=== PATIENT | male | born 1975 | race African-American/Black ===

== ENCOUNTER 2022-08-04 13:21 | Inpatient (IN) | payer OTHER ==
[2022-08-04 15:09] VITALS: BMI 22.8
[2022-08-04] MEDS ORDERED: ACETAMINOPHEN 325 MG TABLET (FP) PO PRN (17:40)
[2022-08-04] MEDS ORDERED: IBUPROFEN 400 MG TABLET (FP) PO PRN (17:40)
[2022-08-04] MEDS ORDERED: IBUPROFEN 600 MG TABLET (FP) PO PRN (17:40)
[2022-08-04] MEDS ORDERED: P-EPHED 60MG/TRIPROLIDI 2.5MG TABLET PO PRN (17:40)
[2022-08-04] MEDS ORDERED: AMMONIUM LACTATE 12% LOTION 225 GM BOTTLE TP PRN (17:40)
[2022-08-04] MEDS ORDERED: LOPERAMIDE HCL 2 MG CAPSULE PO PRN (17:40)
[2022-08-04] MEDS ORDERED: hydrOXYzine PAMOATE 25 MG CAPSULE (FP) PO PRN (17:40)
[2022-08-04] MEDS ORDERED: MAG HYDROX/AL HYDROX/SIMETH 30 ML UNIT-DOSE CUP PO PRN (17:40)
[2022-08-04] MEDS ORDERED: guaiFENesin 600 MG TABLET.ER (FP) PO PRN (17:40)
[2022-08-04] MEDS ORDERED: MAGNESIUM HYDROX 2400MG/30ML ORAL SUSPENSION 30 ML CUP PO PRN (17:40)
[2022-08-04] MEDS ORDERED: COLLOIDAL OATMEAL 1 BAR EACH TP PRN (17:40)
[2022-08-04] MEDS ORDERED: BENZOCAINE/MENTHOL (CHLORASEPTIC ) LOZENGE MM PRN (17:40)
[2022-08-04] MEDS ORDERED: POLYETHYLENE GLYCOL (HEALTHYLAX) 3350 17 GM PACKET PO PRN (17:40)
[2022-08-04] MEDS ORDERED: BENZONATATE 200 MG CAPSULE PO PRN (17:40)
[2022-08-04] MEDS: TUBERCULIN PPD 5 TU/0.1ML SYRINGE (IN PATIENT USE ONLY) ID ONE ×2 (18:38→19:20)
[2022-08-04 20:49] VITALS: RESP 18
[2022-08-04] MEDS: LIDOCAINE PATCH REMOVAL MC SCH (22:10)
[2022-08-04] MEDS: THIAMINE HCL 100 MG TABLET (FP) PO SCH (22:10)
[2022-08-04] MEDS: MELATONIN 5 MG TABLETS PO SCH (22:10)
[2022-08-05] MEDS: PRENATAL VITAMINS W/ FOLIC ACID TABLET (FP) PO SCH (09:53)
[2022-08-05] MEDS: LIDOCAINE 5% TOPICAL PATCH TP SCH (09:53)
[2022-08-05 12:44] LABS: HEMATOCRIT 42.4 % (35.4-49); HEMOGLOBIN 14.3 GM/dL (11.7-16.9); MCH 31.4 pg (25.7-33.7); MCHC 33.7 g/dl (32.0-35.9); MEAN CELL VOLUME 93.2 fl (80-96); MEAN PLT VOLUME 7.6 fl (7.5-11.1); PLATELET COUNT 297 10^3/uL (134-434); POTASSIUM 3.5 mmol/L (3.5-5.1); RBC 4.55 M/mm3 (4.00-5.60); RDW 13.6 % (11.9-15.9); WHITE BLOOD COUNT 3.2 K/mm3 (4.0-10.0)
[2022-08-05 12:55] LABS: ALBUMIN 2.9 g/dl (3.4-5.0); BLOOD UREA NITROGEN 12.2 mg/dL (7-18); CALCIUM 8.9 mg/dL (8.5-10.1)
[2022-08-05 12:57] LABS: CREATININE 0.9 mg/dL (0.55-1.3)
[2022-08-05 12:59] LABS: BILIRUBIN,TOTAL 0.6 mg/dL (0.2-1)
[2022-08-05 13:07] LABS: SYPHILIS W/ RPR CONF NON-REACTIVE (NONREACTIVE)
[2022-08-05 13:11] LABS: PH,URINE 6.5 (5.0-8.0); URINE APPEARANCE CLEAR; URINE BILIRUBIN NEGATIVE (NEGATIVE); URINE COLOR YELLOW; URINE GLUCOSE (UA) NEGATIVE (NEGATIVE); URINE KETONE NEGATIVE (NEGATIVE); URINE LEUK ESTERASE NEGATIVE (NEGATIVE); URINE NITRITE NEGATIVE (NEGATIVE); URINE PROTEIN NEGATIVE (NEGATIVE); URINE UROBILINOGEN 0.2 mg/dL (0.2-1.0)
[2022-08-05] MEDS ORDERED: ARIPiprazole 10 MG TABLET PO STA (16:05)
[2022-08-05] MEDS ORDERED: CITALOPRAM HYDROBROMIDE 20 MG TABLET PO STA (16:06)
[2022-08-05] MEDS: MELATONIN 5 MG TABLETS PO SCH (23:37)
[2022-08-05] MEDS: LIDOCAINE PATCH REMOVAL MC SCH (23:37)
[2022-08-05] MEDS: THIAMINE HCL 100 MG TABLET (FP) PO SCH (23:37)
[2022-08-06 07:10] VITALS: BP 157/101; PULSE 69; TEMP 96.2
[2022-08-06] MEDS: PRENATAL VITAMINS W/ FOLIC ACID TABLET (FP) PO SCH (10:19)
[2022-08-06] MEDS: LIDOCAINE 5% TOPICAL PATCH TP SCH (10:19)
[2022-08-06] MEDS ORDERED: ARIPiprazole 10 MG TABLET PO SCH (14:00)
[2022-08-06] MEDS ORDERED: CITALOPRAM HYDROBROMIDE 20 MG TABLET PO SCH (14:00)
== END 2022-08-06 14:00 | disposition left against medical advice (07) | DRG 770 ==
LOC: YASAS 13:21 → Y3W 17:44
PROVIDERS: ADMIT Surgery; ATTEND Psychiatry & Neurology Pain Medicine
PROC: HZ42ZZZ Group Counseling for Substance Abuse Treatment, Cognitive-Behavioral (ICD-10-PCS; principal; 2022-08-04)
DX: F15.20 Other stimulant dependence, uncomplicated (principal); F32.A Depression, unspecified; F43.10 Post-traumatic stress disorder, unspecified; B20 Human immunodeficiency virus [HIV] disease; Z79.899 Other long term (current) drug therapy; M54.50 Low back pain, unspecified; G89.29 Other chronic pain; Z86.59 Personal history of other mental and behavioral disorders
CPT/HCPCS: 36415; 80053; 81003; 85027; 86780; 86803; 87635; 87811; 93005; 93010

== ENCOUNTER 2022-11-01 14:08 | Inpatient (IN) | payer OTHER ==
[2022-11-01 15:37] VITALS: BMI 23.2
[2022-11-01] MEDS ORDERED: LOPERAMIDE HCL 2 MG CAPSULE PO PRN (21:35)
[2022-11-01] MEDS ORDERED: BENZONATATE 200 MG CAPSULE PO PRN (21:35)
[2022-11-01] MEDS ORDERED: IBUPROFEN 400 MG TABLET (FP) PO PRN (21:35)
[2022-11-01] MEDS ORDERED: COLLOIDAL OATMEAL 1 BAR EACH TP PRN (21:35)
[2022-11-01] MEDS ORDERED: guaiFENesin 600 MG TABLET.ER (FP) PO PRN (21:35)
[2022-11-01] MEDS ORDERED: IBUPROFEN 600 MG TABLET (FP) PO PRN (21:35)
[2022-11-01] MEDS ORDERED: MAG HYDROX/AL HYDROX/SIMETH 30 ML UNIT-DOSE CUP PO PRN (21:35)
[2022-11-01] MEDS ORDERED: P-EPHED 60MG/TRIPROLIDI 2.5MG TABLET PO PRN (21:35)
[2022-11-01] MEDS ORDERED: MAGNESIUM HYDROX 2400MG/30ML ORAL SUSPENSION 30 ML CUP PO PRN (21:35)
[2022-11-01] MEDS ORDERED: BENZOCAINE/MENTHOL (CHLORASEPTIC ) LOZENGE MM PRN (21:35)
[2022-11-01] MEDS ORDERED: POLYETHYLENE GLYCOL (HEALTHYLAX) 3350 17 GM PACKET PO PRN (21:35)
[2022-11-01] MEDS ORDERED: ACETAMINOPHEN 325 MG TABLET (FP) PO PRN (21:35)
[2022-11-02] MEDS: MELATONIN 5 MG TABLETS PO SCH ×2 (02:04→21:08)
[2022-11-02] MEDS: THIAMINE HCL 100 MG TABLET (FP) PO SCH ×2 (02:04→21:08)
[2022-11-02] MEDS: hydrOXYzine PAMOATE 25 MG CAPSULE (FP) PO PRN (06:25)
[2022-11-02] MEDS: BICTEGRAV/EMTRICIT/TENOFOV (BIKTARVY) 50-200-25 MG TABLET PO SCH (07:06)
[2022-11-02] MEDS ORDERED: BACITRACIN ZINC 15 GM TUBE TOPICAL OINTMENT TP SCH (10:00)
[2022-11-02] MEDS: SULFAMETHOXAZOLE/TRIMETHOPRIM 800MG/160MG D.S. TABLET PO SCH ×2 (10:12→21:08)
[2022-11-02] MEDS: FOLIC ACID 1 MG TABLET (FP) PO SCH (10:13)
[2022-11-02] MEDS: PRENATAL VITAMINS W/ FOLIC ACID TABLET (FP) PO SCH (10:13)
[2022-11-02 11:13] LABS: CALCIUM 8.3 mg/dL (8.5-10.1)
[2022-11-02 11:14] LABS: ALBUMIN 2.6 g/dl (3.4-5.0); BLOOD UREA NITROGEN 7.3 mg/dL (7-18)
[2022-11-02 11:17] LABS: CREATININE 1.2 mg/dL (0.55-1.3)
[2022-11-02 11:18] LABS: TOT PROT 8.6 g/dl (6.4-8.2)
[2022-11-02 11:19] LABS: BILIRUBIN,TOTAL 0.3 mg/dL (0.2-1)
[2022-11-02 11:24] LABS: HEMATOCRIT 38.9 % (35.4-49); HEMOGLOBIN 12.8 GM/dL (11.7-16.9); MCH 30.5 pg (25.7-33.7); MEAN CELL VOLUME 92.6 fl (80-96); MEAN PLT VOLUME 7.9 fl (7.5-11.1); PLATELET COUNT 278 10^3/uL (134-434); RDW 13.6 % (11.9-15.9); WHITE BLOOD COUNT 3.5 K/mm3 (4.0-10.0)
[2022-11-02] MEDS: ASCORBIC ACID 500 MG TABLET (FP) PO SCH (12:06)
[2022-11-02] MEDS: ARIPiprazole 10 MG TABLET PO SCH (13:17)
[2022-11-02] MEDS: TAMSULOSIN HCL 0.4 MG CAP PO SCH (13:17)
[2022-11-02] MEDS: CITALOPRAM HYDROBROMIDE 20 MG TABLET PO SCH (13:31)
[2022-11-02 17:32] LABS: PH,URINE 6.5 (5.0-8.0); URINE APPEARANCE CLEAR; URINE BILIRUBIN NEGATIVE (NEGATIVE); URINE COLOR YELLOW; URINE GLUCOSE (UA) NEGATIVE (NEGATIVE); URINE KETONE NEGATIVE (NEGATIVE); URINE LEUK ESTERASE NEGATIVE (NEGATIVE); URINE NITRITE NEGATIVE (NEGATIVE); URINE PROTEIN NEGATIVE (NEGATIVE)
[2022-11-02] MEDS: BACITRACIN 0.9 GM PACKET TP SCH (21:08)
[2022-11-03] MEDS: BICTEGRAV/EMTRICIT/TENOFOV (BIKTARVY) 50-200-25 MG TABLET PO SCH (07:05)
[2022-11-03] MEDS: FOLIC ACID 1 MG TABLET (FP) PO SCH (09:37)
[2022-11-03] MEDS: BACITRACIN 0.9 GM PACKET TP SCH ×2 (09:37→21:04)
[2022-11-03] MEDS: SULFAMETHOXAZOLE/TRIMETHOPRIM 800MG/160MG D.S. TABLET PO SCH ×2 (09:37→21:04)
[2022-11-03] MEDS: PRENATAL VITAMINS W/ FOLIC ACID TABLET (FP) PO SCH (09:37)
[2022-11-03] MEDS: ASCORBIC ACID 500 MG TABLET (FP) PO SCH (09:37)
[2022-11-03] MEDS: TAMSULOSIN HCL 0.4 MG CAP PO SCH (09:37)
[2022-11-03] MEDS: ARIPiprazole 10 MG TABLET PO SCH (14:15)
[2022-11-03] MEDS: CITALOPRAM HYDROBROMIDE 20 MG TABLET PO SCH (14:15)
[2022-11-03] MEDS: MELATONIN 5 MG TABLETS PO SCH (21:04)
[2022-11-03] MEDS: THIAMINE HCL 100 MG TABLET (FP) PO SCH (21:04)
[2022-11-04] MEDS: BICTEGRAV/EMTRICIT/TENOFOV (BIKTARVY) 50-200-25 MG TABLET PO SCH (07:09)
[2022-11-04] MEDS: TAMSULOSIN HCL 0.4 MG CAP PO SCH (08:54)
[2022-11-04] MEDS: PRENATAL VITAMINS W/ FOLIC ACID TABLET (FP) PO SCH (09:23)
[2022-11-04] MEDS: BACITRACIN 0.9 GM PACKET TP SCH ×2 (09:23→21:27)
[2022-11-04] MEDS: ASCORBIC ACID 500 MG TABLET (FP) PO SCH (09:23)
[2022-11-04] MEDS: SULFAMETHOXAZOLE/TRIMETHOPRIM 800MG/160MG D.S. TABLET PO SCH ×2 (09:23→21:27)
[2022-11-04] MEDS: FOLIC ACID 1 MG TABLET (FP) PO SCH (09:23)
[2022-11-04] MEDS ORDERED: PENICILLIN G BENZATHINE 2,400,000 UNIT/4 ML PFS IM ONE (12:53)
[2022-11-04] MEDS: CITALOPRAM HYDROBROMIDE 20 MG TABLET PO SCH (13:37)
[2022-11-04] MEDS: ARIPiprazole 10 MG TABLET PO SCH (13:37)
[2022-11-04] MEDS: MELATONIN 5 MG TABLETS PO SCH (21:26)
[2022-11-04] MEDS: THIAMINE HCL 100 MG TABLET (FP) PO SCH (21:26)
[2022-11-05] MEDS: BICTEGRAV/EMTRICIT/TENOFOV (BIKTARVY) 50-200-25 MG TABLET PO SCH (07:17)
[2022-11-05 07:45] VITALS: RESP 18
[2022-11-05] MEDS: BACITRACIN 0.9 GM PACKET TP SCH ×2 (09:29→21:06)
[2022-11-05] MEDS: PRENATAL VITAMINS W/ FOLIC ACID TABLET (FP) PO SCH (09:29)
[2022-11-05] MEDS: SULFAMETHOXAZOLE/TRIMETHOPRIM 800MG/160MG D.S. TABLET PO SCH ×2 (09:29→21:06)
[2022-11-05] MEDS: FOLIC ACID 1 MG TABLET (FP) PO SCH (09:29)
[2022-11-05] MEDS: ASCORBIC ACID 500 MG TABLET (FP) PO SCH (09:29)
[2022-11-05] MEDS: TAMSULOSIN HCL 0.4 MG CAP PO SCH (09:30)
[2022-11-05] MEDS: ARIPiprazole 10 MG TABLET PO SCH (13:07)
[2022-11-05] MEDS: CITALOPRAM HYDROBROMIDE 20 MG TABLET PO SCH (13:07)
[2022-11-05] MEDS: MELATONIN 5 MG TABLETS PO SCH (21:06)
[2022-11-05] MEDS: THIAMINE HCL 100 MG TABLET (FP) PO SCH (21:06)
[2022-11-06] MEDS: BICTEGRAV/EMTRICIT/TENOFOV (BIKTARVY) 50-200-25 MG TABLET PO SCH (07:05)
[2022-11-06] MEDS: PRENATAL VITAMINS W/ FOLIC ACID TABLET (FP) PO SCH (09:09)
[2022-11-06] MEDS: TAMSULOSIN HCL 0.4 MG CAP PO SCH (09:09)
[2022-11-06] MEDS: ASCORBIC ACID 500 MG TABLET (FP) PO SCH (09:09)
[2022-11-06] MEDS: BACITRACIN 0.9 GM PACKET TP SCH ×2 (09:09→21:15)
[2022-11-06] MEDS: SULFAMETHOXAZOLE/TRIMETHOPRIM 800MG/160MG D.S. TABLET PO SCH ×2 (09:09→21:15)
[2022-11-06] MEDS: FOLIC ACID 1 MG TABLET (FP) PO SCH (09:10)
[2022-11-06] MEDS: ARIPiprazole 10 MG TABLET PO SCH (13:55)
[2022-11-06] MEDS: CITALOPRAM HYDROBROMIDE 20 MG TABLET PO SCH (14:00)
[2022-11-06] MEDS: THIAMINE HCL 100 MG TABLET (FP) PO SCH (21:15)
[2022-11-06] MEDS: MELATONIN 5 MG TABLETS PO SCH (21:15)
[2022-11-07] MEDS: hydrOXYzine PAMOATE 25 MG CAPSULE (FP) PO PRN (06:14)
[2022-11-07] MEDS: BICTEGRAV/EMTRICIT/TENOFOV (BIKTARVY) 50-200-25 MG TABLET PO SCH (07:08)
[2022-11-07 08:06] VITALS: BP 130/91; PULSE 104; TEMP 97.5
[2022-11-07] MEDS: PRENATAL VITAMINS W/ FOLIC ACID TABLET (FP) PO SCH (09:07)
[2022-11-07] MEDS: SULFAMETHOXAZOLE/TRIMETHOPRIM 800MG/160MG D.S. TABLET PO SCH (09:07)
[2022-11-07] MEDS: FOLIC ACID 1 MG TABLET (FP) PO SCH (09:07)
[2022-11-07] MEDS: ASCORBIC ACID 500 MG TABLET (FP) PO SCH (09:07)
[2022-11-07] MEDS: TAMSULOSIN HCL 0.4 MG CAP PO SCH (09:08)
[2022-11-07] MEDS: BACITRACIN 0.9 GM PACKET TP SCH (09:18)
== END 2022-11-07 12:10 | disposition home or self-care (01) | DRG 772 ==
LOC: YASAS 14:08 → Y3W 11-02 01:22
PROVIDERS: ADMIT Allergy & Immunology; ATTEND Psychiatry & Neurology Pain Medicine
PROC: HZ42ZZZ Group Counseling for Substance Abuse Treatment, Cognitive-Behavioral (ICD-10-PCS; principal; 2022-11-02)
DX: F15.20 Other stimulant dependence, uncomplicated (principal); F41.9 Anxiety disorder, unspecified; F32.A Depression, unspecified; F43.10 Post-traumatic stress disorder, unspecified; Z21 Asymptomatic human immunodeficiency virus [HIV] infection status; A53.9 Syphilis, unspecified; I10 Essential (primary) hypertension; M54.50 Low back pain, unspecified; G89.29 Other chronic pain; R76.8 Other specified abnormal immunological findings in serum
CPT/HCPCS: 36415; 80053; 81003; 82962; 85027; 86593; 86780; 87635

== ENCOUNTER 2023-10-01 12:03 | Inpatient (IN) | payer OTHER ==
[2023-10-01 12:40] VITALS: BMI 25.7
[2023-10-01] MEDS ORDERED: POLYETHYLENE GLYCOL (HEALTHYLAX) 3350 17 GM PACKET PO PRN (13:07)
[2023-10-01] MEDS ORDERED: IBUPROFEN 400 MG TABLET (FP) PO PRN (13:07)
[2023-10-01] MEDS ORDERED: MAG HYDROX/AL HYDROX/SIMETH 30 ML UNIT-DOSE CUP PO PRN (13:07)
[2023-10-01] MEDS ORDERED: MAGNESIUM HYDROX 2400MG/30ML ORAL SUSPENSION 30 ML CUP PO PRN (13:07)
[2023-10-01] MEDS ORDERED: guaiFENesin 600 MG TABLET.ER (FP) PO PRN (13:07)
[2023-10-01] MEDS ORDERED: LOPERAMIDE HCL 2 MG CAPSULE PO PRN (13:07)
[2023-10-01] MEDS ORDERED: BENZOCAINE/MENTHOL (CHLORASEPTIC ) LOZENGE MM PRN (13:07)
[2023-10-01] MEDS ORDERED: hydrOXYzine PAMOATE 25 MG CAPSULE (FP) PO PRN (13:07)
[2023-10-01] MEDS ORDERED: BENZONATATE 200 MG CAPSULE PO PRN (13:07)
[2023-10-01] MEDS: METOPROLOL TARTRATE 25 MG TABLET (FP) PO ONE (19:13)
[2023-10-01] MEDS: MELATONIN 5 MG TABLETS PO SCH (21:55)
[2023-10-01] MEDS: THIAMINE 100 MG TABLET PO SCH (21:55)
[2023-10-02] MEDS: TAMSULOSIN HCL 0.4 MG CAP PO SCH (09:30)
[2023-10-02] MEDS: PRENATAL VITAMINS W/ FOLIC ACID TABLET (FP) PO SCH (09:30)
[2023-10-02 12:17] LABS: POTASSIUM 3.8 mmol/L (3.5-5.1)
[2023-10-02 12:19] LABS: CALCIUM 8.5 mg/dL (8.5-10.1)
[2023-10-02 12:20] LABS: ALBUMIN 2.6 g/dl (3.4-5.0); BLOOD UREA NITROGEN 15.9 mg/dL (7-18)
[2023-10-02 12:22] LABS: HEMATOCRIT 36.8 % (35.4-49); HEMOGLOBIN 12.2 GM/dL (11.7-16.9); MCHC 33.1 g/dl (32.0-35.9); MEAN CELL VOLUME 90.6 fl (80-96); MEAN PLT VOLUME 7.8 fl (7.5-11.1); PLATELET COUNT 281 10^3/uL (134-434); RBC 4.07 M/mm3 (4.00-5.60); RDW 14.4 % (11.9-15.9); WHITE BLOOD COUNT 3.7 K/mm3 (4.0-10.0)
[2023-10-02 12:25] LABS: BILIRUBIN,TOTAL 0.6 mg/dL (0.2-1)
[2023-10-02 12:28] LABS: TOT PROT 7.6 g/dl (6.4-8.2)
[2023-10-02] MEDS: ARIPiprazole 10 MG TABLET PO SCH (21:09)
[2023-10-02] MEDS: CITALOPRAM HYDROBROMIDE 20 MG TABLET PO SCH (21:51)
[2023-10-02] MEDS: IBUPROFEN 600 MG TABLET (FP) PO PRN (23:27)
[2023-10-03] MEDS: ACETAMINOPHEN 325 MG TABLET (FP) PO PRN (07:11)
[2023-10-04] MEDS: BICTEGRAV/EMTRICIT/TENOFOV (BIKTARVY) 50-200-25 MG TABLET PO SCH (10:47)
[2023-10-04] MEDS: ASPIRIN 81 MG CHEWABLE TABLETS PO SCH (10:47)
[2023-10-04 19:21] LABS: URINE APPEARANCE CLEAR; URINE BILIRUBIN NEGATIVE (NEGATIVE); URINE COLOR YELLOW; URINE GLUCOSE (UA) NEGATIVE (NEGATIVE); URINE KETONE NEGATIVE (NEGATIVE); URINE LEUK ESTERASE NEGATIVE (NEGATIVE); URINE NITRITE NEGATIVE (NEGATIVE); URINE PROTEIN NEGATIVE (NEGATIVE); URINE UROBILINOGEN 0.2 mg/dL (0.2-1.0)
[2023-10-04] MEDS: ATORVASTATIN CA 40 MG TABLET (FP) PO SCH (21:04)
[2023-10-04] MEDS: CITALOPRAM HYDROBROMIDE 10 MG TABLET PO SCH (21:05)
[2023-10-04] MEDS: ARIPiprazole 5 MG TABLET PO SCH (21:41)
[2023-10-04] MEDS ORDERED: CITALOPRAM HYDROBROMIDE 10 MG TABLET PO SCH (22:00)
[2023-10-06 07:11] VITALS: PULSE 86; RESP 16; TEMP 97.3
[2023-10-06 07:12] VITALS: BP 158/97
== END 2023-10-06 13:06 | disposition home or self-care (01) | DRG 772 ==
LOC: YASAS 12:03 → Y3NR 14:01 → Y3W 10-02 18:30
PROVIDERS: ADMIT Psychiatry & Neurology Pain Medicine; ATTEND Psychiatry & Neurology Pain Medicine
PROC: HZ42ZZZ Group Counseling for Substance Abuse Treatment, Cognitive-Behavioral (ICD-10-PCS; principal; 2023-10-01)
DX: F15.20 Other stimulant dependence, uncomplicated (principal); F19.24 Other psychoactive substance dependence with psychoactive substance-induced mood disorder; I25.10 Atherosclerotic heart disease of native coronary artery without angina pectoris; I10 Essential (primary) hypertension; E78.5 Hyperlipidemia, unspecified; N40.0 Benign prostatic hyperplasia without lower urinary tract symptoms
CPT/HCPCS: 0241U-QW; 36415; 80053; 80305; 81003; 85027; 86593; 86780; 86803; 87811